=== PATIENT | male | born 1995 | race Caucasian/White ===

== ENCOUNTER 2022-06-05 04:16 | Observation (INO) ==
[2022-06-05] MEDS ORDERED: ONDANSETRON INJ 2 MG/ML 2 ML VIAL IV STA (04:35)
[2022-06-05] MEDS ORDERED: MoRPHine SULFATE 4 MG/ML 1 ML CARP\\VIAL IV PRN (04:35)
[2022-06-05] MEDS ORDERED: SODIUM CHLORIDE 0.9% 1000ML 1,000 ML IV SCH (04:45)
[2022-06-05 05:03] LABS: Basophils # (auto) 0.01 K/uL (0-0.2); Basophils % (auto) 0.3 %; Eosinophils # (auto) 0.02 K/uL (0-0.50); Eosinophils % (auto) 0.6 %; Hematocrit (blood only) 48.4 % (40.1-51.0); Hemoglobin 15.9 g/dl (14.0-18.0); Immature Granulocytes # (auto) 0.01 K/uL (0.00-0.02); Immature Granulocytes % (auto) 0.3 %; Lymphocytes # (auto) 0.85 K/uL (1.2-3.4); Lymphocytes % (auto) 25.1 %; Mean Corpuscular Hemoglobin 24.5 pg (25.0-34.0); Mean Corpuscular Hgb Conc 32.9 g/dL (32.0-36.0); Mean Corpuscular Volume 74.7 fL (80.0-100.0); Mean Platelet Volume 9.8 fL (9.4-12.4); Monocytes # (auto) 0.42 K/uL (0.24-0.82); Monocytes % (auto) 12.4 %; Neutrophils # (auto) 2.07 K/uL (1.4-6.5); Neutrophils % (auto) 61.3 %; Platelet Count 180 K/uL (130-400); RDW Coefficient of Variation 13.9 % (11.5-14.5); RDW Standard Deviation 35.8 fL (36.4-46.3); Red Blood Count 6.48 M/uL (4.63-6.08); White Blood Count 3.38 K/ul (4.8-10.8)
[2022-06-05 05:44] LABS: Anion Gap 11 (3-11); BUN Creatinine Ratio 12.8 (10-20); Blood Urea Nitrogen 11 mg/dl (6-23); Calcium 9.8 mg/dl (8.5-10.1); Carbon Dioxide 27 mmol/L (21-32); Chloride 102 mmol/L (98-107); Est GFR (African American) 139.7 ml/min; Est GFR (Non-African American) 120.5 ml/min; Glucose 104 mg/dl (70-99(Fasting)); Potassium 3.7 mmol/L (3.5-5.1); Sodium 140 mmol/L (136-145)
[2022-06-05 05:56] LABS: Alanine Aminotransferase 600 U/L (7-52); Albumin Globulin Ratio 1.3 (0.9-2); Albumin Level 4.8 gm/dl (3.4-5.0); Alkaline Phosphatase 290 U/L (34-104); Aspartate Aminotransferase 511 U/L (13-39); Bilirubin,Total 1.4 mg/dl (0.2-1.0); Globulin 3.6 gm/dl (2.5-4.0); Lipase 30 U/L (11-82); Magnesium 2.2 mg/dl (1.7-2.4); Total Protein 8.4 gm/dl (6.0-8.3)
--- NOTE | 2022-06-05 07:04 | Emergency Department Note ---
History of Present Illness General Chief complaint: Abdominal Pain Stated complaint: ABDOMINAL PAIN Time Seen by Provider: 06/05/22 04:27 History of Present Illness Maximum Pain Intensity: 0 This is a 27-year-old male presenting to the emergency department for evaluation of epigastric abdominal pain. The patient states that he has had this pain twice in the past 2 days, and tonight was worse than previous. The pain is primarily in the epigastric region and does not radiate. He has not had symptoms like this in the past. No fevers or chills. No nausea or vomiting. He feels like he is eating and drinking as normal. He does not identify aggravating or alleviating factors. He does not have a history of abdominal surgery. Past Med/Surg History Medical History No chronic diseases present Surgical History No significant past surgical history Social History Smoking Status: Never smoker Preferred Language: Hebrew Feels Safe at Home: Yes Review of Systems A total of 10 systems reviewed and were otherwise negative Physical Exam Vital Signs Vital Signs - 24 hr 06/05/22 04:25 06/05/22 05:27 Temperature 36.6 C Temperature Source Oral Pulse Rate 74 Pulse Rate [Finger] 64 Respiratory Rate 18 18 Respiratory Effort / Characteristics Non-Labored Spontaneous Non-Labored Spontaneous Respiratory Depth Normal Normal Blood Pressure 131/96 Blood Pressure [Right Arm] 125/82 Blood Pressure Mean 107 Blood Pressure Mean [Right Arm] 96 Blood Pressure Position Sitting Blood Pressure Position [Right Arm] Sitting Pulse Oximetry 93 97 Oxygen Delivery Method Room Air Room Air Sepsis Recent Fever Within 48 Hours No Sepsis New/Unexplained Change in Mental Status No Sepsis Action Taken by Nursing No Action Required VITALS: Vitals are noted on the nurse's note and reviewed by myself. Vital signs stable. GENERAL: Well-developed, well-nourished, white male, who is in no acute distress and resting comfortably. Patient is cooperative with the examination. HEAD: Normocephalic atraumatic. HEART: Regular rate and rhythm without murmurs gallops or rubs. LUNGS: Clear to auscultation bilaterally without wheezes, rales or rhonchi. No retractions or accessory muscle use. ABDOMEN: Positive normal bowel sounds x 4. Soft with gastric tenderness. No rebound or guarding. No lower abdominal tenderness. No CVA tenderness. MUSCULOSKELETAL: No muscle atrophy, erythema, or edema noted. Full range of motion in all extremities. No tenderness to palpation. Normal gait. Strength 5/5 throughout. NEURO: Patient was alert and oriented to person place and time. CN II through XII grossly intact. Course Administered Medications Morphine Sulfate (Morphine Sulfate 4 Mg/Ml 1 Ml Carp\Vial) 4 mg IV Q30M PRN PRN Reason: Pain Stop: 06/19/22 04:34 Last Admin: 06/05/22 05:14 Dose: 4 mg Documented By: CC Discontinued Medications Sodium Chloride (Nss 1000ml) 1,000 mls @ 999 mls/hr IV .Q1H1M PHIL Stop: 06/05/22 05:45 Last Infusion: 06/05/22 06:38 Dose: 0 mls/hr Documented By: Admin: 06/05/22 05:12 Dose: 999 mls/hr Documented By: CC Ondansetron HCl (Ondansetron Inj 2 Mg/Ml 2 Ml Vial) 4 mg IV NOW STA Stop: 06/05/22 04:36 Last Admin: 06/05/22 05:13 Dose: 4 mg Documented By: CC Medical Decision Making Differential Diagnosis Differential diagnosis: Etiologies such as biliary colic, cholecystitis, hepatitis, pancreatitis, cardiac disease, pancreatitis, gastritis, peptic ulcer disease, appendicitis, cystitis, diverticulitis, mesenteric ischemia, inflammatory bowel disease, ileus, bowel obstruction, testicular/adnexal torsion, aortic pathology, shingles, as well as others were considered Laboratory Data Result diagrams: 06/05/22 04:52 06/05/22 04:52 Lab Results 06/05/22 06/05/22 06/05/22 Range/Units 04:52 04:52 04:52 WBC 3.38 L (4.8-10.8) K/ul RBC 6.48 H (4.63-6.08) M/uL Hgb 15.9 (14.0-18.0) g/dl Hct 48.4 (40.1-51.0) % MCV 74.7 L (80.0-100.0) fL MCH 24.5 L (25.0-34.0) pg MCHC 32.9 (32.0-36.0) g/dL RDW Std Deviation 35.8 L (36.4-46.3) fL RDW Coeff of Lorri 13.9 (11.5-14.5) % Plt Count 180 (130-400) K/uL MPV 9.8 (9.4-12.4) fL Immature Gran % (Auto) 0.3 % Neut % (Auto) 61.3 % Lymph % (Auto) 25.1 % [place] % (Auto) 12.4 % Eos % (Auto) 0.6 % Baso % (Auto) 0.3 % Neut # (Auto) 2.07 (1.4-6.5) K/uL Lymph # (Auto) 0.85 L (1.2-3.4) K/uL [place] # (Auto) 0.42 (0.24-0.82) K/uL Eos # (Auto) 0.02 (0-0.50) K/uL Baso # (Auto) 0.01 (0-0.2) K/uL Immature Gran # (Auto) 0.01 (0.00-0.02) K/uL Sodium 140 (136-145) mmol/L Potassium 3.7 (3.5-5.1) mmol/L Chloride 102 (98-107) mmol/L Carbon Dioxide 27 (21-32) mmol/L Anion Gap 11 (3-11) BUN 11 (6-23) mg/dl Creatinine 0.86 (0.6-1.4) mg/dl Est Cr Clr Drug Dosing Not Reportable Est GFR ( Amer) 139.7 ml/min Est GFR (Non-Af Amer) 120.5 ml/min BUN/Creatinine Ratio 12.8 (10-20) Glucose 104 H (70-99(Fasting)) mg/dl Calcium 9.8 (8.5-10.1) mg/dl Magnesium 2.2 (1.7-2.4) mg/dl Total Bilirubin 1.4 H (0.2-1.0) mg/dl AST 511 H (13-39) U/L ALT 600 H (7-52) U/L Alkaline Phosphatase 290 H (34-104) U/L Total Protein 8.4 H (6.0-8.3) gm/dl Albumin 4.8 (3.4-5.0) gm/dl Globulin 3.6 (2.5-4.0) gm/dl Albumin/Globulin Ratio 1.3 (0.9-2) Lipase 30 (11-82) U/L Monoscreen Negative (Negative) MDM Narrative Physical exam and history were performed. Nursing notes, EMR, and Medication List were personally reviewed. Patient appears to have upper abdominal pain bringing him to the ER. He does not appear toxic on examination but does have reproducible tenderness. IV access was established and labs were obtained. He was hydrated with normal saline and given IV morphine and IV Zofran for comfort. The patient's blood work is as above and was reviewed. He does not have a significantly elevated white blood cell count, gross anemia, bandemia, or significant electrolyte imbalance. Transaminases are markedly elevated. [place] was negative. Lipase is not diagnostic. Because of patient's symptoms CT scan with IV and oral contrast was ordered. The remained in stable condition until the time of shift change. The case was discussed with my colleague, Bernadette Diamond PA-C, at the time of shift change. Please see Ms. Diamond's dictation for further patient course, plan, disposition pending CT scan. The chart was completed utilizing [employer] Speech Voice Recognition Software. Grammatical errors, random word insertions, pronoun errors, and incomplete sentences are an occasional consequence of this system due to software limitations, ambient noise, and hardware issues. Any formal questions or concerns about the content, text, or information contained within the body of this dictation should be directly addressed to the provider for clarification. . Impression & Plan Acute upper abdominal pain Discharge Plan Visit Data Chief Complaint: Abdominal Pain Stated Complaint: ABDOMINAL PAIN ED Provider: Namita Joseph ED Midlevel Provider: Pablo Dallas Discharge Problem: Acute upper abdominal pain Forms Stand Alone Forms: My [facility] Referrals Referrals: PCP,NO [Primary Care Provider] -
[2022-06-05 07:52] LABS: Appearance Urine Clear (Clear); Bilirubin Urine Negative (Negative); Blood Urine Negative (Negative); Color Urine Yellow; Glucose Urine UA Negative (Negative); Ketones Urine Negative (Negative); Leukocyte Esterase Urine Negative (Negative); Nitrite Urine Negative (Negative); Protein Urine Negative (Negative); Specific Gravity Urine 1.009 (1.000-1.030); Urobilinogen Urine Negative (Negative); pH Urine 5.5 (4.5-7.5)
[2022-06-05] MEDS ORDERED: OPTIRAY 350 100ml IV ONE (08:13)
[2022-06-05 08:20] LABS: Amphetamines+Metham, Urine Neg (Neg); Barbiturates, Urine Neg (Neg); Benzodiazepine, Urine Neg (Neg); Cocaine, Urine Neg (Neg); MDMA (Ecstacy), Urine Neg (Neg); Methadone, Urine Neg (Neg); Opiate, Urine Pos (Neg); Phencyclidine, Urine Neg (Neg)
--- NOTE | 2022-06-05 09:28 | Emergency Department Note ---
ED Visit Note This patient was signed out to me by Pablo TREVIZO due to change of shift. The patient has been being evaluated for abdominal pain with worsening epigastric abdominal pain for the past 2 days. The patient states that he had 2 acute attacks of the epigastric abdominal pain after eating mozzarella sticks and then pizza. He did have a fever on 05/31/2022 for a couple hours, but no fever since that time. Laboratory studies revealed elevated LFTs with ALT of 600, AST 511, alk phos 290, and total bili 1.4. Lipase was normal. Decreased white blood cell count at 3.38 with normal hemoglobin of 15.9. Platelets normal at 180. CMP otherwise essentially unremarkable. Urinalysis negative for UTI. Urine drug screen positive for opiates and marijuana (he had been given morphine prior to the urine sample). Monoscreen negative with acute hepatitis panel pending. The patient's pain had resolved after morphine 4 mg IV and Zofran 4 mg IV. He was also given 1 L normal saline solution bolus. CT scan of the abdomen pelvis with IV and oral contrast showed mild enhancement within the nondistended gallbladder wall with trace pericholecystic fluid. There is also subtle enhancement within the common hepatic duct. This is nonspecific but could be related to a developing acute cholecystitis or ascending cholangitis. No bowel wall thickening or obstruction. Normal appendix. Blood cultures were obtained and the patient was started on Zosyn 4.5 g IV. I contacted surgery and spoke with Cooper TREVIZO who recommended the patient be admitted by medicine and GI consulted. I spoke with the on-call hospitalist who agreed to admit the patient for further evaluation and treatment. They will consult GI as needed. Please refer to their dictation for further details. The care of this patient was transferred to the hospitalist in stable condition. .
--- NOTE | 2022-06-05 09:29 | CT Scan Report ---
ABDOMEN AND PELVIS CT WITH IV AND ORAL CONTRAST CT DOSE: 376.33 mGy.cm HISTORY: Right-sided abdominal pain TECHNIQUE: Multiaxial CT images of the abdomen and pelvis were performed following the use of intrave nous and oral contrast. A dose lowering technique was utilized adhering to the principles of ALARA. COMPARISON STUDY: None. FINDINGS: The lung bases are clear. No pneumoperitoneum. No pneumatosis. The spleen is top normal in size. The adrenal glands, pancreas, and right kidney are unremarkable. There is a 7 mm left renal hyp odense lesion which favors a cyst. No hydronephrosis. The bladder is unremarkable. No retroperitoneal lymphadenopathy. Normal caliber abdominal aorta. No hepatic masses. There is mild enhancement within the nondistended gallbladder with trace pericholecystic fluid. There is also subtle enhancement with in the common hepatic duct. Normal caliber common bile duct. No definite gallstones by CT. The main p ortal vein is patent. No pelvic free fluid. No bowel wall thickening or obstruction. Normal appendix. IMPRESSION: 1. Mild enhancement within the nondistended gallbladder wall with trace pericholecystic fluid. There is also subtle enhancement within the common hepatic duct. This is nonspecific but could be related t o a developing acute cholecystitis or ascending cholangitis. Surgical/GI consultation recommended. 2. No bowel wall thickening or obstruction. 3. Normal appendix. ACT 112: Negative or not required by law. Electronically signed by: Steve Schuster M.D. 06/05/2022 9:28 AM
[2022-06-05] MEDS ORDERED: PIPERACILLIN/TAZOBACTAM 4.5 GM/120 ML BAG IV ONE (09:42)
--- NOTE | 2022-06-05 11:23 | History & Physical Report ---
Date of Service June 05, 2022 Assessment & Plan (1) Transaminitis: (2) Abnormal computed tomography of abdomen and pelvis: Plan: This is a 27yo M with PMH of depression and ADD who presents with abdominal pain x 2 days. Pain started two nights ago after eating mozzarella sticks and he describes it as sudden onset in epigastrium with associated nausea and found to have cholelithiasis, transaminitis and concern for ascending cholangitis per imaging. Afebrile, VSS, no leukocytosis. Not septic Tbili 1.4, AST 511, ALT 600, alk phos 290, monospot negative, hepatitis panel pending CT abd/pelvis with mild enhancement within the nondistended gallbladder wall with trace pericholecystic fluid. There is also subtle enhancement within the common hepatic duct. This is nonspecific but could be related to a developing acute cholecystitis or ascending cholangitis GI consulted - recommending MRCP and antibiotic coverage given fever a few days prior. Planning for EUS/ERCP tomorrow afternoon Gen surg consulted - ordered abd ultrasound which shows cholelithiasis and intraductal calculi within liver raising concern for PSC . Tentatively planning for lap roxann tomorrow Maintenance IV fluids, analgesics, empiric Cipro/Flagyl NPO @ midnight (3) Depression: Plan: Continue Zoloft (4) ADD (attention deficit disorder): Plan: No longer taking medications DVT Ppx: SCDs Code status: FULL PCP: Any Dispo: Admitted to med/surg Patient seen in collaboration with Dr. Sorto. Please see addendum. History of Present Illness Chief Complaint: abdominal pain Primary Care Provider: NO PCP This is a 27yo M with PMH of depression and ADD who presents with abdominal pain x 2 days. Pain started two nights ago after eating mozzarella sticks and he describes it as sudden onset in epigastrium with associated nausea. [place] too poorly to shower but was able to lay down and sleep with resolution of pain by morning. Recurred again last night after eating pizza and has progressively worsened overnight despite taking 500mg Tylenol and patient came into ED for further evaluation. Did have a fever of 102 F over the weekend for 12 hours but has not recurred. No chills, headache, lightheadedness, vomiting, dysuria, diarrhea or constipation. Pain has resolved with IV morphine in ED. No history of abdominal surgeries. Take CBD/THC gummies. Denies regular alcohol use. Only home meds include Zoloft and Vitamin D supplement. Allergies Allergy/AdvReac Type Severity Reaction Status Date / Time No Known Allergies Allergy Verified 06/05/22 09:40 Home Medications Medication Instructions Recorded Confirmed Type cholecalciferol (vitamin D3) 50 50 mcg PO DAILY 06/05/22 06/05/22 History mcg (2,000 unit) capsule (Vitamin D3) sertraline 100 mg tablet 150 mg PO DAILY 06/05/22 06/05/22 History Past Med/Surg History Medical History ADD (attention deficit disorder) Depression Surgical History Other dental procedure status Family History (Updated 06/05/22 @ 13:35 by Radha Prasad PA-C) Other Hypertension Social History Smoking Status: Never smoker Hx Alcohol Use: Yes Alcohol Intake Frequency: Monthly or Less Hx Substance Use: No Preferred Language: Pashto Current Living Situation: Parent Feels Safe at Home: Yes Review of Systems Review of Systems: At least ten systems reviewed and negative except as noted in the HPI. Physical Exam Physical Exam: General Appearance: WD/WN, vitals as above, NAD, sitting up in bed, pleasant, conversing easily Head: normocephalic, atraumatic Eyes: normal inspection, PERRL, conjunctivae normal, anicteric sclerae ENT: external ear and nose normal, oropharynx normal Neck: normal visual inspection, trachea midline, no thyromegaly Respiratory: normal respiratory effort, lungs clear to auscultation, no wheeze, rales, rhonchi. No accessory muscle use Cardiovascular: regular rate, rhythm, no murmur, normal peripheral pulses, no BLE edema. Vessels: no JVD Chest: normal inspection of chest Abdomen/GI: normal bowel sounds, soft, mild TTP epigastric region, no hepato splenomegaly Extremities/Musculoskeletal: no cyanosis or clubbing, extremities motor strength 5/5 Neurologic: PERRL, EOMI, accommodation nl, no face palsy, no dysarthria, CN's II-XI intact bilaterally and moves all extremities Psychiatric: A+Ox3, euthymic affect Skin: no rashes, normal color, warm/dry Results & Data Results & [facility] ([facility]) Vital Signs (Past 12 Hours) Vital Signs Temp Pulse Pulse Resp BP BP Pulse Ox 06/05/22 06:58 70 14 117/76 98 06/05/22 05:27 64 18 125/82 97 06/05/22 04:25 36.6 C 74 18 131/96 93 O2 Del Method 06/05/22 06:58 Room Air 06/05/22 05:27 Room Air 06/05/22 04:25 Room Air Laboratory Results Short CBC 06/05/22 Range/Units 04:52 WBC 3.38 L (4.8-10.8) K/ul Hgb 15.9 (14.0-18.0) g/dl Hct 48.4 (40.1-51.0) % Plt Count 180 (130-400) K/uL BMP 06/05/22 04:52 Sodium 140 Potassium 3.7 Chloride 102 Carbon Dioxide 27 BUN 11 Creatinine 0.86 Glucose 104 H Calcium 9.8 Liver Function 06/05/22 Range/Units 04:52 Total Bilirubin 1.4 H (0.2-1.0) mg/dl AST 511 H (13-39) U/L ALT 600 H (7-52) U/L Alkaline Phosphatase 290 H (34-104) U/L Albumin 4.8 (3.4-5.0) gm/dl Urine 06/05/22 Range/Units 07:23 Urine Color Yellow Urine Appearance Clear (Clear) Urine pH 5.5 (4.5-7.5) Ur Specific [place] 1.009 (1.000-1.030) Urine Protein Negative (Negative) Urine Glucose (UA) Negative (Negative) Diagnostic Findings Abdomen/Pelvis CT 06/05/22 05:[address] WITH IV AND ORAL CONTRAST CT DOSE: 376.33 mGy.cm HISTORY: Right-sided abdominal pain TECHNIQUE: Multiaxial CT images of the abdomen and pelvis were performed following the use of intravenous and oral contrast. A dose lowering technique was utilized adhering to the principles of ALARA. COMPARISON STUDY: None. FINDINGS: The lung bases are clear. No pneumoperitoneum. No pneumatosis. The spleen is top normal in size. The adrenal glands, pancreas, and right kidney are unremarkable. There is a 7 mm left renal hypodense lesion which favors a cyst. No hydronephrosis. The bladder is unremarkable. No retroperitoneal lymphadenopathy. Normal caliber abdominal aorta. No hepatic masses. There is mild enhancement within the nondistended gallbladder with trace pericholecystic fluid. There is also subtle enhancement within the common hepatic duct. Normal caliber common bile duct. No definite gallstones by CT. The main portal vein is patent. No pelvic free fluid. No bowel wall thickening or obstruction. Normal appendix. IMPRESSION: 1. Mild enhancement within the nondistended gallbladder wall with trace pericholecystic fluid. There is also subtle enhancement within the common hepatic duct. This is nonspecific but could be related to a developing acute cholecystitis or ascending cholangitis. Surgical/GI consultation recommended. 2. No bowel wall thickening or obstruction. 3. Normal appendix. ACT 112: Negative or not required by law. Electronically signed by: Steve Schuster M.D. 06/05/2022 9:28 AM Code Status & VTE Plan VTE Prophylaxis Plan VTE Prophylaxis will be ordered: Yes Supervising Physician Co-Signing Physician Notes Care coordinated with Radha Prasad PA-C. Agree with able note. Patient seen and examined. Please refer to her notes for full details. Vital signs reviewed. Physical exam: General exam: Alert and oriented. Not in acute distress. CVS: S1 and S2 heard, regular rate and rhythm, no murmurs. RS: Clear to auscultation, no wheezing or crackles. ABD: Soft, bowel sounds present, mild epigastric tenderness present , no distention. COUTURE ALTERATIONS DRESSMAKER: Nonfocal. EXT: No edema, no erythema. Labs: Reviewed. Assessment and plan: 27Y M presents with abdominal pain in epigastric region radiating down the lower rig cage associated with Nausea. Pain first came couple of days ago and subsided after some time but came back again which prompted him to come to ER. Last Thursday he had fever but subsided after 12-16hrs and it was not related to his abdomen pain as per patient. Currently resting comfortably and hemodynamically stable. No chest pain or sob. Afebrile currently. Acute cholecystitis Cholangitis? as per imaging studies Elevated LFt possible PSC as per Ultrasound MRCP: 1. Cholelithiasis with findings suspicious for acute cholecystitis. If warranted a nuclear hepatobiliary scan would be confirmatory. 2. There is mild intrahepatic biliary ductal dilatation. The common bile duct is dilated, and choledocholithiasis is questioned at the ampulla. NPO Iv fluids iv cipro and flagyl GI and Surgery consulted Plan for ercp/eus in am followup labs Other diagnosis and plan of care as per Radha Prasad PA-C. Rey hodgson MD.
--- NOTE | 2022-06-05 12:02 | Gastrointestinal Consultation ---
Date of Consultation June 05, 2022 Assessment & Plan (1) Abnormal computed tomography of abdomen and pelvis: CT w prominence of the CBD and gallstones. US pending. Plan Planning for EUS +/- ERCP today by Dr. Rayo. If not able to get this done today, then would get MRCP. Because hx of fever last sat, there is concern for cholangitis and would cover w antibiotic such as Cipro. Supervising Physician Co-Signing Physician Notes Thomas Stacy is a 27 y/o M with no significant PMH other than mood disorder that presented with abdominal pain that began 2 days ago located in the epigastric region and radiating down the costal margins. He reports both him and his sister had a fever last thursday but no fevers or chills since. No jaundifce/scleral icterus. He denies any hx of abdominal pain or related symptoms. He denies alcohol or drug use (though drug screen was + for THC). On arrival he was HDS without fever with labs notable for wbc 3k, hgb 15.9, AST 511, ALT 600, ALP 290, total bili 1.4. Acute hep panel negative. Abdominal US notable for cholelithiasis without acute cholecystitis, mild intra and extra hepatic biliary duct dilation (no CBD stone seen however found to have intraductal calculi within liver) and possibility of PSC. CT abd/pelvis also reviewed which did show some subtle enhancement within the common hepatic duct. Physical exam: General: AAOx3, laying in bed, no complaints Eyes: sclera anicteric Lungs: CTA bilaterally Cardiac: RRR, no murmurs Abdomen: soft, non-tender, non-distended, no guarding/rigidity, no hepatosplenomegaly Psych: appropriate affect Plan: -will plan for EUS+/- ERCP tomorrow afternoon in the OR. ERCP will also be helpful to assess if patient has PSC which was raised as a possibility on abdominal ultrasound. -NPO at midnight tonight -trend LFTs daily -await results of acute hepatitis panel -empiric coverage for cholangitis given history of fever with something such as cipro or zosyn -further recommendations pending outcome of procedures tomorrow Agnieszka Guajardo, Gastroenterology and Hepatology I personally saw and evaluated the patient on 06/05. I agree with the plan and recommendations as stated above by VINI Pizarro. History of Present Illness Reason for Consultation: Abdominal pain, elevated LFTs Requesting Physician: Radha Prasad PA-C Attending Physician: [facility] History of Present Illness Mr. Thomas Stacy is a 27 yr old male w/o a PCP, w a PMH remarkable only for mood disorder who has been having intermittent, episodic upper abd pain after eating which began 2 days, after eating Pizza and Mozzerella sticks. Because the pain has not subsided, he presented to the ED where transaminases are significantly elevated (ALT>AST) and imaging suggests cholecystitis and possible subtle enhancement of the CBD. [place] spot is (-), acute hepatitis panel is pending, and there is no leukocytosis. Drug tox is positive for marijuana and opioids (but had been given a narcotic analgesic in the ED prior to the draw). He mentions that he had a fever last Thursday (5 days ago) but doesn't believe that it was related to the pain. His sister was sick with a febrile illness at the time and he had been exposed. He is COVID (-). His pain did no start until Thursday. He is seen/examined while resting in bed. He is awake, alert, oriented and hemodynamically stable. Allergies Allergy/AdvReac Type Severity Reaction Status Date / Time No Known Allergies Allergy Verified 06/05/22 09:40 Home Medications Medication Instructions Recorded Confirmed Type cholecalciferol (vitamin D3) 50 50 mcg PO DAILY 06/05/22 06/05/22 History mcg (2,000 unit) capsule (Vitamin D3) sertraline 100 mg tablet 150 mg PO DAILY 06/05/22 06/05/22 History Patient History Medical History ADD (attention deficit disorder) Depression Surgical History Other dental procedure status Family History (Updated 06/05/22 @ 13:35 by Radha Prasad PA-C) Other Hypertension Social History Smoking Status: Never smoker Hx Alcohol Use: Yes Alcohol Intake Frequency: Monthly or Less Hx Substance Use: Yes Prescribed Medications: Marijuana Preferred Language: Ethiopian Feels Safe at Home: Yes Review of Systems Review of Systems: ROS: Gen: Denies weakness, fevers, weight loss Eyes: No eye redness, or pain, no recent vision changes Resp: No SOB, no cough Cardio: No palpitations/irregular beats, no chest pain GI: As per HPI, otherwise (-). : Denies pain on urination Skin: No jaundice, itching or new rashes Physical Exam Constitutional: WD/WN, vitals as above Eyes: PERRL, conjunctivae normal, anicteric sclerae ENMT: external ear and nose normal, oropharynx normal Neck: trachea midline, no thyromegaly Respiratory: normal respiratory effort, lungs clear to auscultation Cardiovascular: RRR, no murmur, no edema Gastrointestinal (Abdomen): Inspection/Auscultation: abdomen normal to inspection; abdomen not distended Percussion/Palpation: + abdomen tender (mild, upper abdomen) and abdomen soft; no hepatosplenomegaly and no splenomegaly Skin: no rashes, warm and dry Neurologic: PERRL, EOMI, accommodation nl, no face palsy, no dysarthria Psychiatric: A+Ox3, euthymic affect Lymphatic: no cervical or axillary lymphadenopathy Results & Data ([facility]) Vital Signs (Past 12 Hours) Vital Signs Temp Pulse Pulse Resp BP BP Pulse Ox 06/05/22 06:58 70 14 117/76 98 06/05/22 05:27 64 18 125/82 97 06/05/22 04:25 36.6 C 74 18 131/96 93 O2 Del Method 06/05/22 06:58 Room Air 06/05/22 05:27 Room Air 06/05/22 04:25 Room Air Laboratory Results T Bili 1.4, AST 511, ALT 600, Alk Phos 290. WBC 3, Hb 15, Hct 4.4, glucose 180, Na 140, K 3.7, Cl 102, Co2 27, BUN 11, Cr .86,glucose 104. Diagnostic Findings CTAP w IV and oral today: 1. Mild enhancement within the nondistended gallbladder wall with trace pericholecystic fluid. There is also subtle enhancement within the common hepatic duct. This is nonspecific but could be related to a developing acute cholecystitis or ascending cholangitis. Surgical/GI consultation recommended. 2. No bowel wall thickening or obstruction. 3. Normal appendix.
--- NOTE | 2022-06-05 12:57 | Ultrasound Report ---
ABDOMINAL ULTRASOUND, RIGHT UPPER QUADRANT HISTORY: R/o gallstones, choledocholithiasis. COMPARISON: CT of the abdomen and pelvis June 05, 2022. FINDINGS: Mild intra and extra hepatic biliary ductal dilatation is noted. The common bile duct measu res 9 mm in caliber. No common bile duct calculi are identified. However, there are 2 echogenic foci with shadowing within the intrahepatic bile ducts which measure up to 1 cm. These could reflect intra ductal calculi. Gallstones within the gallbladder are noted. There is mild gallbladder wall thickenin g. The gallbladder is not distended. No sonographic Portillo sign was elicited. The pancreas is obscure d by overlying bowel gas. There is no right hydronephrosis. IMPRESSION: 1. Cholelithiasis with mild gallbladder wall thickening. However, no sonographic Portillo sign. These f indings do not strongly suggest acute cholecystitis although a hepatobiliary scan could be obtained a s indicated. 2. Mild biliary ductal dilatation. No common bile duct calculi identified although distal common bile duct obscured. Two suspected intraductal calculi within the liver. These are nonspecific but raise t he possibility of cholangitis, such as primary sclerosing cholangitis. GI consultation is recommended . ACT 112: Negative or not required by law. Electronically signed by: Liborio Cha M.D. 06/05/2022 12:56 PM
--- NOTE | 2022-06-05 13:23 | Surgery Consultation ---
Date of Consultation June 05, 2022 Assessment & Plan (1) Cholelithiasis: CT images and ultrasound images and results personally viewed by me He does have gallstones without any clinical or sonographic signs of acute cholecystitis On ultrasound he also has intraductal calculi within the liver raising a concern for PSC We will await gastroenterology evaluation for possible EUS/ERCP I will tentatively place him on the schedule tomorrow for laparoscopic cholecystectomy History of Present Illness Reason for Consultation: Cholelithiasis History of Present Illness Is a 27-year-old male presents to the ER with 2 days of epigastric pain. . He states that he ate some mozzarella sticks and had epigastric pain with radiation down his costal margins. This then went away however he then had some pizza yesterday evening and the pain persisted. He denies any jaundice, scleral icterus, acholic stools, tea colored urine. He states he did have a fever a couple days ago. He is also had some associated nausea without emesis.He denies any previous abdominal surgeries. Allergies Allergy/AdvReac Type Severity Reaction Status Date / Time No Known Allergies Allergy Verified 06/05/22 09:40 Home Medications Medication Instructions Recorded Confirmed Type cholecalciferol (vitamin D3) 50 50 mcg PO DAILY 06/05/22 06/05/22 History mcg (2,000 unit) capsule (Vitamin D3) sertraline 100 mg tablet 150 mg PO DAILY 06/05/22 06/05/22 History Patient History Medical History ADD (attention deficit disorder) Depression Surgical History Other dental procedure status Social History Smoking Status: Never smoker Hx Alcohol Use: Yes Alcohol Intake Frequency: Monthly or Less Hx Substance Use: Yes Prescribed Medications: Marijuana Preferred Language: [place] Islander Feels Safe at Home: Yes Review of Systems Constitutional: no fever and no chills Eyes: no worsening vision Ear, Nose, Mouth, Throat: no ear pain and no hearing loss Respiratory: no cough and no dyspnea Cardiovascular: no chest pain and no dyspnea on exertion Gastrointestinal: + abdominal pain and + nausea; no vomiting, no change in stools, no constipation, no diarrhea/loose stools, no blood in stools and no melena Genitourinary: no dysuria Musculoskeletal: no back pain and no neck pain Integumentary: no acne, no rash, no skin ulcer and no sores Neurologic: no headache(s) Psychiatric: no behavioral changes and no depression Hematologic / Lymphatic: no easy bleeding and no easy bruising Physical Exam Constitutional: WD/WN, vitals as above Eyes: PERRL, conjunctivae normal, anicteric sclerae ENMT: external ear and nose normal, oropharynx normal Neck: trachea midline, no thyromegaly Respiratory: normal respiratory effort, lungs clear to auscultation Cardiovascular: RRR, no murmur, no edema Gastrointestinal (Abdomen): Inspection/Auscultation: abdomen normal to inspection; abdomen not distended Percussion/Palpation: abdomen soft; abdomen nontender, no guarding and no hernia Musculoskeletal: no cyanosis or clubbing, extremities motor strength 5/5 Skin: no rashes, warm and dry Neurologic: PERRL, EOMI, accommodation nl, no face palsy, no dysarthria Psychiatric: A+Ox3, euthymic affect Results & Data ([facility]) Vital Signs (Past 12 Hours) Vital Signs Temp Pulse Pulse Resp BP BP Pulse Ox 06/05/22 06:58 70 14 117/76 98 06/05/22 05:27 64 18 125/82 97 06/05/22 04:25 36.6 C 74 18 131/96 93 O2 Del Method 06/05/22 06:58 Room Air 06/05/22 05:27 Room Air 06/05/22 04:25 Room Air Diagnostic Findings ABDOMINAL ULTRASOUND, RIGHT UPPER QUADRANT HISTORY: R/o gallstones, choledocholithiasis. COMPARISON: CT of the abdomen and pelvis June 05, 2022. FINDINGS: Mild intra and extra hepatic biliary ductal dilatation is noted. The common bile duct measures 9 mm in caliber. No common bile duct calculi are identified. However, there are 2 echogenic foci with shadowing within the intrahepatic bile ducts which measure up to 1 cm. These could reflect intraductal calculi. Gallstones within the gallbladder are noted. There is mild gallbladder wall thickening. The gallbladder is not distended. No sonographic Portillo sign was elicited. The pancreas is obscured by overlying bowel gas. There is no right hydronephrosis. IMPRESSION: 1. Cholelithiasis with mild gallbladder wall thickening. However, no sonographic Portillo sign. These findings do not strongly suggest acute cholecystitis although a hepatobiliary scan could be obtained as indicated. 2. Mild biliary ductal dilatation. No common bile duct calculi identified although distal common bile duct obscured. Two suspected intraductal calculi within the liver. These are nonspecific but raise the possibility of cholangitis, such as primary sclerosing cholangitis. GI consultation is recommended. PG Care Time/CCT Total # of Minutes Spent Total Time Spent with Patient: Total time spent is greater than 50% in coordination of care (as documented) at patient's floor/unit and/or counseling patient: Coding Level of Care Code 01214 Office/OBS Consult Lvl 5 Diagnoses Cholelithiasis K80.20
[2022-06-05] MEDS ORDERED: HYDROmorphone INJ 0.5 MG/0.5 ML SYR IV PRN (13:46)
[2022-06-05] MEDS: SODIUM CHLORIDE 0.9% 1000ML 1,000 ML IV SCH (15:08)
[2022-06-05] MEDS ORDERED: FLUARIX QUADRIVALENT 0.5 ML SYR IM ONE (15:19)
[2022-06-05] MEDS: CIPROFLOXACIN / D5W 400 MG/200 ML BAG IV SCH (15:21)
[2022-06-05] MEDS: metroNIDAZOLE 500 MG/100 ML BAG IV SCH (18:35)
--- NOTE | 2022-06-05 19:43 | Magnetic Resonance Report ---
MRCP CLINICAL HISTORY: Right upper quadrant abdominal pain. COMPARISON STUDY: Abdominal CT dated 06/05/2022. Abdominal ultrasound dated 06/05/2022. TECHNIQUE: Abdominal MRCP is performed utilizing various T2 weighted sequences in the axial and coron al planes. IV contrast was not administered for this examination. 3-D reformats are created and asses sed. The examination is degraded by motion artifact. FINDINGS: Gallstones are noted. There is mild gallbladder wall thickening and edema. The gallbladder is not sig nificantly distended. There is minimal intrahepatic biliary ductal dilatation. The common bile duct i s dilated, measuring up to 9 mm diameter. Question a filling defect at the ampulla. Choledocholithias is is not excluded. The pancreatic duct is normal in caliber. The unenhanced liver is normal as visualized. The spleen is mildly enlarged, measuring 13.3 cm in charo gth. The unenhanced pancreas, adrenal glands, and kidneys are grossly normal. The abdominal aorta is normal in caliber. No bowel obstruction is seen. There is no abdominal ascites. Trace right pleural e ffusion is noted. The bony structures are grossly unremarkable. IMPRESSION: 1. Cholelithiasis with findings suspicious for acute cholecystitis. If warranted a nuclear hepatobili clare scan would be confirmatory. 2. There is mild intrahepatic biliary ductal dilatation. The common bile duct is dilated, and choledo cholithiasis is questioned at the ampulla. Dictated: 06/05/2022 6:52 PM Transcribed: 06/05/2022 7:34 PM Lora [id number] [email or web address] Electronically signed by: Jered Wu M.D. 06/05/2022 7:42 PM
[2022-06-06] MEDS: SODIUM CHLORIDE 0.9% 1000ML 1,000 ML IV SCH ×2 (02:19→11:38)
[2022-06-06] MEDS: metroNIDAZOLE 500 MG/100 ML BAG IV SCH ×3 (02:20→18:51)
[2022-06-06] MEDS: CIPROFLOXACIN / D5W 400 MG/200 ML BAG IV SCH ×2 (03:28→16:36)
[2022-06-06 08:48] LABS: Hematocrit (blood only) 40.6 % (40.1-51.0); Hemoglobin 13.1 g/dl (14.0-18.0); Mean Corpuscular Hemoglobin 24.4 pg (25.0-34.0); Mean Corpuscular Hgb Conc 32.3 g/dL (32.0-36.0); Mean Corpuscular Volume 75.7 fL (80.0-100.0); Platelet Count 132 K/uL (130-400); RDW Coefficient of Variation 13.6 % (11.5-14.5); RDW Standard Deviation 37.2 fL (36.4-46.3); Red Blood Count 5.36 M/uL (4.63-6.08)
[2022-06-06 09:19] LABS: Albumin Globulin Ratio 1.4 (0.9-2); Albumin Level 3.6 gm/dl (3.4-5.0); BUN Creatinine Ratio 8.1 (10-20); Bilirubin,Total 0.7 mg/dl (0.2-1.0); Calcium 8.6 mg/dl (8.5-10.1); Est GFR (African American) 139.7 ml/min; Est GFR (Non-African American) 120.5 ml/min; Globulin 2.6 gm/dl (2.5-4.0); Potassium 3.9 mmol/L (3.5-5.1); Total Protein 6.2 gm/dl (6.0-8.3)
--- NOTE | 2022-06-06 10:16 | Surgery Progress Note ---
Date of Service June 06, 2022 Assessment & Plan (1) Cholelithiasis: Plan: Patient is overall stable and his abdominal pain is improved Upon reviewing his ultrasound results, there is a concern for the possibility of PSC We will await the EUS/ERCP results today He does not have any signs of acute cholecystitis Plan will be to have him follow-up in the office as an outpatient in the short- term to discuss possible elective cholecystectomy at that time Surgery will follow up on ERCP results and while the patient is in the hospital (2) Transaminitis: Admission and Anticipated Discharge Date Admission Date: June 05, 2022 Subjective Patient seen and examined. Denies any abdominal pain at this point. States he did have 1 minor episode of pain yesterday in the evening. Denies any nausea or vomiting. Afebrile. Review of Systems Constitutional: no fever and no chills Physical Exam Constitutional: WD/WN, vitals as above Gastrointestinal (Abdomen): Inspection/Auscultation: abdomen normal to inspection; abdomen not distended Percussion/Palpation: abdomen soft; abdomen nontender, no guarding and no hernia Negative Portillo's Results & Data ([facility]) Vital Signs (Past 12 Hours) Vital Signs Temp Pulse Resp BP Pulse Ox O2 Del Method 06/06/22 07:54 36.5 C 63 17 110/73 99 Room Air 06/05/22 23:05 36.6 C 66 15 111/65 100 Room Air PG Care Time/CCT Total # of Minutes Spent Total Time Spent with Patient: Total time spent is greater than 50% in coordination of care (as documented) at patient's floor/unit and/or counseling patient: Coding Level of Care Code 84806 Subseq Hosp Care Lvl 1 Diagnoses Cholelithiasis K80.20 Transaminitis R74.01
--- NOTE | 2022-06-06 10:44 | Gastroenterology Progress Note ---
Date of Service June 06, 2022 Assessment & Plan (1) Abnormal computed tomography of abdomen and pelvis: Plan: Imaging w prominence of the CBD, question of choledocholithiasis and cholecystitis. US w bile stones - questioning PSC. Plan Planning for EGD/EUS/ERCP today by Dr. Rayo. Would cover for cholangitis w Cipro (because of febrile illness last weekend). Further recommendations to follow procedures. Admission and Anticipated Discharge Date Admission Date: June 05, 2022 Supervising Physician Co-Signing Physician Notes I saw and evaluated the patient, MRI with possible stone material in the distal CBD, we will proceed with EGD / EUS and probable ercp. we have discussed the risks to include bledding, infection, perforation, pancreatitis, failed cannulation and need for f/u studies. Subjective 27, M, admitted 06/05 for 2 days of epigastric pain. Elevated LFTs (improved today compared to yesterday). Monospot (-) and Acute hepatitis panel neg thus far but mostly pending. Imaging w suggestion of choledocholithiasis and acute cholecystitis. Seen by surgery who plans cholecystectomy. Mitesh for EUS/EGD/ERCP this afternoon by Dr. Rayo. Review of Systems Review of Systems: ROS: Gen: Denies weakness, fevers, weight loss Eyes: No eye redness, or pain, no recent vision changes Resp: Very mild chest discomfort, "like a little mucous there, since last Sat" +mild occasional cough. No SOB Cardio: No palpitations/irregular beats, no chest pain GI: As per HPI otherwise (-) : Denies pain on urination Skin: No jaundice, itching or new rashes A total of 12 systems reviewed, all others (-) Physical Exam Constitutional: WD/WN, vitals as above Eyes: PERRL, conjunctivae normal, anicteric sclerae ENMT: external ear and nose normal, oropharynx normal Neck: trachea midline, no thyromegaly Respiratory: normal respiratory effort, lungs clear to auscultation Cardiovascular: RRR, no murmur, no edema Gastrointestinal (Abdomen): Inspection/Auscultation: abdomen normal to inspection; abdomen not distended Percussion/Palpation: + abdomen tender (mild, upper abdomen) and abdomen soft; no hepatosplenomegaly and no splenomegaly Skin: no rashes, warm and dry Neurologic: PERRL, EOMI, accommodation nl, no face palsy, no dysarthria Psychiatric: A+Ox3, euthymic affect Lymphatic: no cervical or axillary lymphadenopathy Results & Data ([facility]) Vital Signs (Past 12 Hours) Vital Signs Temp Pulse Resp BP Pulse Ox O2 Del Method 06/06/22 07:54 36.5 C 63 17 110/73 99 Room Air 06/05/22 23:05 36.6 C 66 15 111/65 100 Room Air Laboratory Results T Bili 0.7, AST 24, ALT 557, Alk Phos 232 WBC 3.3, Hb 15.9, Hct 48.9, plts 180, Na 140, K 3.7, Cl 102, CO2 27, BUN 11, Cr 0.86, glucose 104. Diagnostic Findings MRCP 06/05/22: 1. Cholelithiasis with findings suspicious for acute cholecystitis. If warranted a nuclear hepatobiliary scan would be confirmatory. 2. There is mild intrahepatic biliary ductal dilatation. The common bile duct is dilated, and choledocholithiasis is questioned at the ampulla. RUQ US 06/05/22: 1. Cholelithiasis with mild gallbladder wall thickening. However, no sonographic Portillo sign. These findings do not strongly suggest acute cholecystitis although a hepatobiliary scan could be obtained as indicated. 2. Mild biliary ductal dilatation. No common bile duct calculi identified although distal common bile duct obscured. Two suspected intraductal calculi within the liver. These are nonspecific but raise the possibility of cholangitis, such as primary sclerosing cholangitis. GI consultation is recommended. CTAP 06/05/22: 1. Mild enhancement within the nondistended gallbladder wall with trace pericholecystic fluid. There is also subtle enhancement within the common hepatic duct. This is nonspecific but could be related to a developing acute cholecystitis or ascending cholangitis. Surgical/GI consultation recommended. 2. No bowel wall thickening or obstruction. 3. Normal appendix.
[2022-06-06 11:07] LABS: HBSAG NON-REACTIVE (NON-REACTIVE); Hepatitis A Antibody IgM NON-REACTIVE (NON-REACTIVE); Hepatitis B Core Antibody IgM NON-REACTIVE (NON-REACTIVE)
--- NOTE | 2022-06-06 11:08 | Electrocardiogram Report ---
Test Reason : Blood Pressure : / mmHG Vent. Rate : 060 BPM Atrial Rate : 060 BPM P-R Int : 106 ms QRS Dur : 088 ms QT Int : 442 ms P-R-T Axes : 027 033 022 degrees QTc Int : 442 ms Sinus rhythm Otherwise normal ECG No previous ECGs available Confirmed by Gildardo Neri ([id number]) on 06/06/2022 11:08:09 AM Referred By: REFERRED SELF Confirmed By:Jared Neri
--- NOTE | 2022-06-06 11:11 | Electrocardiogram Report ---
Test Reason : Blood Pressure : / mmHG Vent. Rate : 060 BPM Atrial Rate : 060 BPM P-R Int : 110 ms QRS Dur : 088 ms QT Int : 436 ms P-R-T Axes : 043 045 035 degrees QTc Int : 436 ms Sinus rhythm Otherwise normal ECG No previous ECGs available Confirmed by Gildardo Neri ([id number]) on 06/06/2022 11:11:12 AM Referred By: REFERRED SELF Confirmed By:Jared Neri
--- NOTE | 2022-06-06 12:11 | Hospitalist Progress Note ---
Date of Service June 06, 2022 Assessment & Plan (1) Transaminitis: (2) Abnormal computed tomography of abdomen and pelvis: Plan: This is a 27yo M with PMH of depression and ADD who presents with abdominal pain x 2 days. Pain started two nights ago after eating mozzarella sticks and he describes it as sudden onset in epigastrium with associated nausea and found to have cholelithiasis, transaminitis and concern for ascending cholangitis per imaging. Afebrile, VSS, no leukocytosis. Not septic Tbili 1.4, AST 511, ALT 600, alk phos 290, monospot negative, hepatitis panel pending CT abd/pelvis with mild enhancement within the nondistended gallbladder wall with trace pericholecystic fluid. There is also subtle enhancement within the common hepatic duct. This is nonspecific but could be related to a developing acute cholecystitis or ascending cholangitis GI consulted - MRCP with cholelithiasis with findings suspicious for acute cholecystitis. NPO for EUS/ERCP this afternoon Gen surg consulted - abd ultrasound with cholelithiasis and intraductal calculi within liver raising concern for PSC . Lap roxann cancelled for today due to patient asymptomatic for acute cholecystitis. Will plan for clinic f/u for possible elective cholecystectomy Maintenance IV fluids, analgesics, empiric Cipro/Flagyl Remains NPO for now (3) Depression: Plan: Continue Zoloft once diet advanced (4) ADD (attention deficit disorder): Plan: No longer taking medications DVT Ppx: SCDs Code status: FULL PCP: Any Dispo: Admitted to med/surg Admission and Anticipated Discharge Date Admission Date: June 05, 2022 Supervising Physician Co-Signing Physician Notes delayed entry date of service noted above Attending Addendum: care coordinated with JUAN Prasad please refer to her notes for full details, I agree with her notes patient seen and examined, records reviewed by myself as well on exam, patient seen resting in bed, drowsy but not in distress states he feels fine overall, mild discomfort RUQ no other symptoms diagnoses and plan of care as per JUAN Prasad's notes Junior Stevenson MD Subjective Seen and examined on 318. Resting comfortably watching a movie. Denies any abdominal pain except for an intermittent "rumbling" pain in right upper abdomen. No nausea. Denies any fever, chills, lightheadedness, headache, chest pain, shortness of breath, vomiting, dysuriaor constipation. Had a loose bowel movement last evening. Review of Systems Review of Systems: At least ten systems reviewed and negative except as noted in the HPI. Physical Exam Physical Exam: Gen: WD/WN, NAD, sitting in bedside chair, A&Ox3 HEENT: Normocephalic, atraumatic, conjunctivae moist, sclerae anicteric, mucous membranes moist Lung: Clear to Auscultation bilaterally, no wheezes/rales/rhonchi Heart: Regular rate, regular rhythm, no murmurs, rubs, or gallops Abdomen: Soft, mild TTP upper abdomen, ND +BS x 4 Extremities: no edema Skin: Warm, no rash Results & Data Results & Data ([facility]) Vital Signs (Past 12 Hours) Vital Signs Temp Pulse Resp BP Pulse Ox O2 Del Method 06/06/22 07:54 36.5 C 63 17 110/73 99 Room Air Laboratory Results Short CBC 06/06/22 Range/Units 08:13 WBC 2.10 L (4.8-10.8) K/ul Hgb 13.1 L (14.0-18.0) g/dl Hct 40.6 (40.1-51.0) % Plt Count 132 (130-400) K/uL BMP 06/06/22 08:13 Sodium 140 Potassium 3.9 Chloride 106 Carbon Dioxide 30 BUN 7 Creatinine 0.86 Glucose 82 Calcium 8.6 Liver Function 06/06/22 Range/Units 08:13 Total Bilirubin 0.7 D (0.2-1.0) mg/dl AST 249 H (13-39) U/L ALT 557 H (7-52) U/L Alkaline Phosphatase 232 H (34-104) U/L Albumin 3.6 (3.4-5.0) gm/dl Diagnostic Findings Abdomen/Pelvis CT 06/05/22 05:[address] WITH IV AND ORAL CONTRAST CT DOSE: 376.33 mGy.cm HISTORY: Right-sided abdominal pain TECHNIQUE: Multiaxial CT images of the abdomen and pelvis were performed following the use of intravenous and oral contrast. A dose lowering technique was utilized adhering to the principles of ALARA. COMPARISON STUDY: None. FINDINGS: The lung bases are clear. No pneumoperitoneum. No pneumatosis. The spleen is top normal in size. The adrenal glands, pancreas, and right kidney are unremarkable. There is a 7 mm left renal hypodense lesion which favors a cyst. No hydronephrosis. The bladder is unremarkable. No retroperitoneal lymphadenopathy. Normal caliber abdominal aorta. No hepatic masses. There is mild enhancement within the nondistended gallbladder with trace pericholecystic fluid. There is also subtle enhancement within the common hepatic duct. Normal caliber common bile duct. No definite gallstones by CT. The main portal vein is patent. No pelvic free fluid. No bowel wall thickening or obstruction. Normal appendix. IMPRESSION: 1. Mild enhancement within the nondistended gallbladder wall with trace pericholecystic fluid. There is also subtle enhancement within the common hepatic duct. This is nonspecific but could be related to a developing acute cholecystitis or ascending cholangitis. Surgical/GI consultation recommended. 2. No bowel wall thickening or obstruction. 3. Normal appendix. ACT 112: Negative or not required by law. Electronically signed by: Steve Schuster M.D. 06/05/2022 9:28 AM Abdomen Ultrasound 06/05/22 11:23 ABDOMINAL ULTRASOUND, RIGHT UPPER QUADRANT HISTORY: R/o gallstones, choledocholithiasis. COMPARISON: CT of the abdomen and pelvis June 05, 2022. FINDINGS: Mild intra and extra hepatic biliary ductal dilatation is noted. The common bile duct measures 9 mm in caliber. No common bile duct calculi are identified. However, there are 2 echogenic foci with shadowing within the intrahepatic bile ducts which measure up to 1 cm. These could reflect intraductal calculi. Gallstones within the gallbladder are noted. There is mild gallbladder wall thickening. The gallbladder is not distended. No sonographic Portillo sign was elicited. The pancreas is obscured by overlying bowel gas. There is no right hydronephrosis. IMPRESSION: 1. Cholelithiasis with mild gallbladder wall thickening. However, no sonographic Portillo sign. These findings do not strongly suggest acute cholecystitis although a hepatobiliary scan could be obtained as indicated. 2. Mild biliary ductal dilatation. No common bile duct calculi identified although distal common bile duct obscured. Two suspected intraductal calculi within the liver. These are nonspecific but raise the possibility of cholangitis, such as primary sclerosing cholangitis. GI consultation is recommended. ACT 112: Negative or not required by law. Electronically signed by: Liborio Cha M.D. 06/05/2022 12:56 PM Cholangiopancreatography MRI 06/05/22 13:26 MRCP CLINICAL HISTORY: Right upper quadrant abdominal pain. COMPARISON STUDY: Abdominal CT dated 06/05/2022. Abdominal ultrasound dated 06/05/2022. TECHNIQUE: Abdominal MRCP is performed utilizing various T2 weighted sequences in the axial and coronal planes. IV contrast was not administered for this exam ination. 3-D reformats are created and assessed. The examination is degraded by motion artifact. FINDINGS: Gallstones are noted. There is mild gallbladder wall thickening and edema. The gallbladder is not significantly distended. There is minimal intrahepatic biliary ductal dilatation. The common bile duct is dilated, measuring up to 9 mm diameter. Question a filling defect at the ampulla. Choledocholithiasis is not excluded. The pancreatic duct is normal in caliber. The unenhanced liver is normal as visualized. The spleen is mildly enlarged, measuring 13.3 cm in length. The unenhanced pancreas, adrenal glands, and kidneys are grossly normal. The abdominal aorta is normal in caliber. No bowel obstruction is seen. There is no abdominal ascites. Trace right pleural effusion is noted. The bony structures are grossly unremarkable. IMPRESSION: 1. Cholelithiasis with findings suspicious for acute cholecystitis. If warranted a nuclear hepatobiliary scan would be confirmatory. 2. There is mild intrahepatic biliary ductal dilatation. The common bile duct is dilated, and choledocholithiasis is questioned at the ampulla. Dictated: 06/05/2022 6:52 PM Transcribed: 06/05/2022 7:34 PM Lora [id number] [email or web address] Electronically signed by: Jered Wu M.D. 06/05/2022 7:42 PM
[2022-06-06] MEDS: SERTRALINE HCL 50 MG TABLET PO SCH (12:24)
[2022-06-06] MEDS ORDERED: PROPOFOL IV EMULSION 10 MG/ML 20 ML VIAL IV ONE (13:35)
[2022-06-06] MEDS ORDERED: fentaNYL citrate 100 MCG/2 ML VIAL ONE (13:35)
[2022-06-06] MEDS ORDERED: ROCURONIUM BROMIDE 10 MG/ML 5 ML VIAL IV ONE (13:35)
[2022-06-06] MEDS ORDERED: SUCCINYLCHOLINE CHLORIDE 20 MG/ML 10 ML VIAL IV ONE (13:35)
[2022-06-06] MEDS ORDERED: LIDOCAINE 2% MPF LOCAL 5 ML VIAL INFIL ONE (13:35)
[2022-06-06] MEDS ORDERED: MIDAZOLAM HCL 1 MG/ML 2ML VIAL ONE (13:35)
[2022-06-06] MEDS ORDERED: ONDANSETRON INJ 2 MG/ML 2 ML VIAL ONE ×2 (13:35→15:30)
[2022-06-06] MEDS ORDERED: INDOMETHACIN 50 MG SUPP PR ONE (14:08)
--- NOTE | 2022-06-06 14:19 | History & Physical Bridge Note ---
Date of Service June 06, 2022 History & Physical Bridge Note I have examined the patient, reviewed the History & Physical and in the interval since the performance of the History & Physical I have noted the following changes of clinical significance: no changes noted The patient presented with RUQ pain, elevated liver tests and suspicious imaging suggestive of choledocholithiasis. We are planning for EGD, EUS and a probable ERCP. Risks discussed to include bleeding, infection, perforation, pain, pancreatitis, and failed biliary cannulatiion. MRCP Gallstones are noted. There is mild gallbladder wall thickening and edema. The gallbladder is not significantly distended. There is minimal intrahepatic biliary ductal dilatation. The common bile duct is dilated, measuring up to 9 mm diameter. Question a filling defect at the ampulla. Choledocholithiasis is not excluded. The pancreatic duct is normal in caliber. The unenhanced liver is normal as visualized. The spleen is mildly enlarged, measuring 13.3 cm in length. The unenhanced pancreas, adrenal glands, and kidneys are grossly normal. The abdominal aorta is normal in caliber. No bowel obstruction is seen. There is no abdominal ascites. Trace right pleural effusion is noted. The bony structures are grossly unremarkable. IMPRESSION: 1. Cholelithiasis with findings suspicious for acute cholecystitis. If warranted a nuclear hepatobiliary scan would be confirmatory. 2. There is mild intrahepatic biliary ductal dilatation. The common bile duct is dilated, and choledocholithiasis is questioned at the ampulla. CT WITH IV AND ORAL CONTRAST CT DOSE: 376.33 mGy.cm HISTORY: Right-sided abdominal pain TECHNIQUE: Multiaxial CT images of the abdomen and pelvis were performed following the use of intravenous and oral contrast. A dose lowering technique was utilized adhering to the principles of ALARA. COMPARISON STUDY: None. FINDINGS: The lung bases are clear. No pneumoperitoneum. No pneumatosis. The spleen is top normal in size. The adrenal glands, pancreas, and right kidney are unremarkable. There is a 7 mm left renal hypodense lesion which favors a cyst. No hydronephrosis. The bladder is unremarkable. No retroperitoneal lymphadenopathy. Normal caliber abdominal aorta. No hepatic masses. There is mild enhancement within the nondistended gallbladder with trace pericholecystic fluid. There is also subtle enhancement within the common hepatic duct. Normal caliber common bile duct. No definite gallstones by CT. The main portal vein is patent. No pelvic free fluid. No bowel wall thickening or obstruction. Normal appendix. IMPRESSION: 1. Mild enhancement within the nondistended gallbladder wall with trace pericholecystic fluid. There is also subtle enhancement within the common hepatic duct. This is nonspecific but could be related to a developing acute cholecystitis or ascending cholangitis. Surgical/GI consultation recommended. 2. No bowel wall thickening or obstruction. 3. Normal appendi
[2022-06-06] MEDS ORDERED: ePHEDrine sulfate 50 MG/ML AMP IV PRN (14:27)
[2022-06-06] MEDS ORDERED: ATROPINE SULFATE 0.1 MG/ML 10ML SYR IV PRN (14:27)
[2022-06-06] MEDS ORDERED: fentaNYL citrate 100 MCG/2 ML VIAL IV PRN (14:27)
[2022-06-06] MEDS ORDERED: PROMETHAZINE HCL 6.25 MG in SODIUM CHLORIDE 0.9% 50 ML IV PRN (14:27)
[2022-06-06] MEDS ORDERED: ONDANSETRON INJ 2 MG/ML 2 ML VIAL IV PRN (14:27)
--- NOTE | 2022-06-06 14:27 | Anesthesiology Consultation ---
Date of Service June 06, 2022 Assessment & Plan Chart Review Chart Review: Acceptable Risk for Surgery and Patient NOT seen in Pre Admission Testing Consults Requested none ASA ASA2 Proposed Anesthesia Anesthesia Type: General Risk / Benefits Reviewed With: PT / POA / Parent / Guardian, Accepts Plan and Informed Consent Obtained History Surgery Operation Date: 06/06/22 08:50 Proposed Procedures p Laparoscopic Cholecystectomy - Cory Walker DO Operation Date: 06/06/22 14:00 Proposed Procedures p Endoscopic Retrograde Cholangiopancreato - Zan Rayo DO s Endoscopic Ultrasonography Upper - Zan Rayo, s Esophagogastroduodenoscopy - Zan Rayo DO Height/Weight Height: 5 ft 7 in Weight: 79.9 kg Allergies Allergy/AdvReac Type Severity Reaction Status Date / Time Latex, Natural Rubber AdvReac Swelling & Verified 06/06/22 13:25 pain in hands after wearing latex gloves 6+ hours Medications Home Medications Medication Instructions Recorded Confirmed Last Taken cholecalciferol (vitamin D3) 50 50 mcg PO DAILY 06/05/22 06/05/22 Unknown mcg (2,000 unit) capsule (Vitamin D3) sertraline 100 mg tablet 150 mg PO DAILY 06/05/22 06/05/22 Unknown Active Medications Generic Name Dose Route Start Last Admin Trade Name Freq PRN Reason Stop Dose Admin Ciprofloxacin 400 mg in 200 mls @ 100 mls/hr 06/05/22 15:00 06/06/22 05:34 Cipro / D5w IV 06/15/22 13:29 Infused Q12H PHIL Infusion Protocol Metronidazole 500 mg in 100 mls @ 100 mls/hr 06/05/22 18:00 06/06/22 12:17 Flagyl IV 06/15/22 13:44 Infused Q8H PHIL Infusion Sodium Chloride 1,000 mls @ 100 mls/hr 06/05/22 14:24 06/06/22 13:09 Nss 1000ml IV 06/06/22 21:29 0 mls/hr .Q10H PHIL Infusion Sertraline HCl 150 mg 06/06/22 09:00 06/06/22 12:24 Sertraline Hcl 50 Mg Tablet PO 07/06/22 08:59 Not Given DAILY PHIL NPO Date Last Intake of Fluids: 06/05/22 Time Last Intake of Fluids: 19:00 Date Last Intake of Solids: 06/04/22 Time Last Intake of Solids: 19:00 Past Medical History Medical History ADD (attention deficit disorder) Depression Exercise / Class Metabolic Activity II 4-5 Yardwork/Stairs/Walk up hill Past Family History Family History (Updated 06/05/22 @ 13:35 by Radha Prasad PA-C) Other Hypertension Past Surgical History Surgical History Other dental procedure status Past Anesthesia History No Hx of Anesthesia Complications and No Family Hx of Anesthesia Complications History of PONV No Hx of PONV and No Hx of Motion Sickness Social History Smoking Status: Never smoker Hx Alcohol Use: Yes alcohol intake frequency: holidays/special occasions only Hx Substance Use: No Physical Exam Vital Signs Last Vital Signs Temp 37.4 C 06/06/22 13:16 Pulse 75 06/06/22 13:16 Resp 14 06/06/22 13:16 BP 131/73 06/06/22 13:16 Pulse Ox 94 06/06/22 13:16 O2 Del Method 06/06/22 13:16 ENMT Mouth: no dentition abnormality Thyromental Distance: > or= 3.5 Finger Breadths Mallampati Class: II Neck normal visual inspection Respiratory normal respiratory effort Auscultation: lungs clear to auscultation bilaterally Cardiovascular Rate/Rhythm: regular rate and regular rhythm Psychiatric Orientation: alert Testing Laboratory Results 06/06/22 08:13 06/06/22 08:13 Urine Color Yellow 06/05/22 07:23 Urine Appearance Clear (Clear) 06/05/22 07:23 Urine pH 5.5 (4.5-7.5) 06/05/22 07:23 Ur Specific [place] 1.009 (1.000-1.030) 06/05/22 07:23 Urine Protein Negative (Negative) 06/05/22 07:23 Urine Glucose (UA) Negative (Negative) 06/05/22 07:23 Urine Ketones Negative (Negative) 06/05/22 07:23 Urine Nitrite Negative (Negative) 06/05/22 07:23 Ur Leukocyte Esterase Negative (Negative) 06/05/22 07:23 06/05/22 09:59 Aerobic Blood Culture - Preliminary Blood No growth in Aerobic bottle after 24 hours. Anaerobic Blood Culture - Preliminary No growth in Anaerobic bottle after 24 hours. 06/05/22 10:03 Aerobic Blood Culture - Preliminary Blood No growth in Aerobic bottle after 24 hours. Anaerobic Blood Culture - Preliminary No growth in Anaerobic bottle after 24 hours.
[2022-06-06] MEDS ORDERED: DEXAMETHASONE SOD INJ 4 MG/ML VIAL ONE (15:30)
--- NOTE | 2022-06-06 15:30 | Post Operative Brief Note ---
Immediate Post Op Note v1 Date of Surgery June 06, 2022 Pre & Post Diagnosis Operation Date: 06/06/22 08:50 <No data on this case meets the specified criteria> Operation Date: 06/06/22 14:00 Pre-Op Diagnosis: Choledocholithiasis I identified the patient and participated in the time-out.: Yes Procedure Operation Date: 06/06/22 14:00 EGD, EUS and ERCP with biliary and pancreatic stent placement Surgeon Zan Rayo, DO Strike On Machine Operator None Estimated Blood Loss 0 Findings Consistent with Post-Op Diagnosis
--- NOTE | 2022-06-06 15:38 | Communication Note ---
Date of Service: June 06, 2022 The patient underwent upper endoscopy, endoscopic ultrasound and ERCP. He was found to have blood stones within the distal common bile duct ERCP was quite challenging and required a pancreatic septotomy to access the biliary tree. Several gallstones were removed, a pancreatic stent was placed and a biliary stent was placed. Recommendations Continue IV hydration overnight clear liquid diet, avoid nonsteroidals for 1 week, empiric coverage with antibiotics for total of 7 days, repeat ERCP for stent removal 6 to 8 weeks, cholecystectomy per general surgery
--- NOTE | 2022-06-06 15:40 | GI REPORT ---
Patient Name: Thomas Stacy Procedure Date: 06/06/2022 2:27 PM Date of : 1995 Admit Type: Inpatient Age: 27 Gender: Male Attending MD: Zan Rayo DO, Procedure: Upper GI endoscopy Providers: Zan Rayo DO Referring MD: Cory Elizondo Do Indications: Epigastric abdominal pain Medicines: General Anesthesia Complications: No immediate complications. Estimated blood loss: Minimal. Estimated Blood Loss: Estimated blood loss was minimal. Procedure: Pre-Anesthesia Assessment: - Prior to the procedure, a History and Physical was performed, and patient medications, allergies and sensitivities were reviewed. The patient's tolerance of previous anesthesia was reviewed. - The risks and benefits of the procedure and the sedation options and risks were discussed with the patient. All questions were answered and informed consent was obtained. - Patient identification and proposed procedure were verified prior to the procedure by the physician, the nurse and the campaign manager. The procedure was verified in the procedure room. - Pre-procedure physical examination revealed no contraindications to sedation. - ASA Grade Assessment: II - A patient with mild systemic disease. - After reviewing the risks and benefits, the patient was deemed in satisfactory condition to undergo the procedure. - The anesthesia plan was to use general anesthesia. - Immediately prior to administration of medications, the patient was re-assessed for adequacy to receive sedatives. - The heart rate, respiratory rate, oxygen saturations, blood pressure, adequacy of pulmonary ventilation, and response to care were monitored throughout the procedure. - The physical status of the patient was re-assessed after the procedure. After obtaining informed consent, the endoscope was passed under direct vision. Throughout the procedure, the patient's blood pressure, pulse, and oxygen saturations were monitored continuously. The Endoscope was introduced through the mouth, and advanced to the third part of duodenum. The upper GI endoscopy was accomplished without difficulty. The patient tolerated the procedure well. Findings: The examined esophagus was normal. The Z-line was regular and was found 38 cm from the incisors. Two localized erosions with no bleeding and no stigmata of recent bleeding were found on the posterior wall of the gastric body. The examined duodenum was normal. Impression: - Normal esophagus. - Z-line regular, 38 cm from the incisors. - Gastric erosions with no bleeding and no stigmata of recent bleeding. - Normal examined duodenum. - No specimens collected. Recommendation: - Perform an upper endoscopic ultrasound (UEUS) today. Zan Rayo D.O. Zan Rayo, 06/06/2022 3:39:46 PM This report has been signed electronically. Note Initiated On: 06/06/2022 2:27 PM Number of Addenda: 0 I attest to the content of the Intraoperative Record and orders documented therein, exceptions below {[id number]}
--- NOTE | 2022-06-06 15:41 | Fluoroscopy Report ---
FL ERCP biliary ductal CLINICAL HISTORY: EXPLORE DUCTS TECHNIQUE: 7 views were obtained with the C-arm in the OR with the above procedure. Total fluoroscopy time was 145 seconds. Comparison: None available at the time of this dictation. FINDINGS/IMPRESSION: Intraoperative images were obtained of ERCP. Please correlate with intraoperative fluoroscopy and operative report. ACT 112: Negative or not required by law. Electronically signed by: Fercho Dawn M.D. 06/06/2022 3:40 PM
--- NOTE | 2022-06-06 15:42 | GI REPORT ---
Patient Name: Thomas Stacy Procedure Date: 06/06/2022 2:32 PM Date of : 1995 Admit Type: Inpatient Age: 27 Gender: Male Attending MD: Zan Rayo DO, Procedure: Upper EUS Providers: Zan Rayo DO Referring MD: Junior Stevenson Indications: Elevated liver enzymes, Suspected choledocholithiasis Medicines: General Anesthesia Complications: No immediate complications. Estimated blood loss: Minimal. Estimated Blood Loss: Estimated blood loss was minimal. Procedure: Pre-Anesthesia Assessment: - Prior to the procedure, a History and Physical was performed, and patient medications, allergies and sensitivities were reviewed. The patient's tolerance of previous anesthesia was reviewed. - The risks and benefits of the procedure and the sedation options and risks were discussed with the patient. All questions were answered and informed consent was obtained. - Patient identification and proposed procedure were verified prior to the procedure by the physician, the nurse and the lacquerer. The procedure was verified in the procedure room. - Pre-procedure physical examination revealed no contraindications to sedation. - ASA Grade Assessment: II - A patient with mild systemic disease. - After reviewing the risks and benefits, the patient was deemed in satisfactory condition to undergo the procedure. - The anesthesia plan was to use general anesthesia. - Immediately prior to administration of medications, the patient was re-assessed for adequacy to receive sedatives. - The heart rate, respiratory rate, oxygen saturations, blood pressure, adequacy of pulmonary ventilation, and response to care were monitored throughout the procedure. - The physical status of the patient was re-assessed after the procedure. After obtaining informed consent, the endoscope was passed under direct vision. Throughout the procedure, the patient's blood pressure, pulse, and oxygen saturations were monitored continuously. The Scope was introduced through the mouth, and advanced to the third part of duodenum. The upper EUS was accomplished without difficulty. The patient tolerated the procedure well. Findings: ENDOSONOGRAPHIC FINDING: : There was no sign of significant endosonographic abnormality in the ampulla. No masses were identified. Multiple stones were visualized endosonographically in the common bile duct. The stones measured up to 7 mm in greatest dimension. They were hyperechoic and characterized by shadowing. There was dilation in the common bile duct which measured up to 7 mm. Multiple stones were visualized endosonographically in the gallbladder. They were hyperechoic and characterized by shadowing. There was no sign of significant endosonographic abnormality in the entire pancreas. The pancreatic duct measured up to 2 mm in diameter. No masses, no cysts, the pancreatic duct was well visualized from ampulla to tail, the pancreatic duct was thin in caliber. No lymphadenopathy seen. There was no sign of significant endosonographic abnormality in the left adrenal gland. No adrenal gland enlargement was identified. There was no sign of significant endosonographic abnormality in the visualized portion of the liver. Homogeneous parenchyma was identified. Impression: - There was no sign of significant pathology in the ampulla. - Multiple stones were visualized endosonographically in the common bile duct. - There was dilation in the common bile duct which measured up to 7 mm. - Multiple stones were visualized endosonographically in the gallbladder. - There was no sign of significant pathology in the entire pancreas. - Endosonographic images of the left adrenal gland were unremarkable. - There was no evidence of significant pathology in the visualized portion of the liver. - No specimens collected. Recommendation: - Perform an ERCP today. Zan Rayo D.O. Zan Rayo, 06/06/2022 3:41:58 PM This report has been signed electronically. Note Initiated On: 06/06/2022 2:32 PM Number of Addenda: 0 I attest to the content of the Intraoperative Record and orders documented therein, exceptions below {[id number]}
--- NOTE | 2022-06-06 15:50 | GI REPORT ---
Patient Name: Thomas Stacy Procedure Date: 06/06/2022 2:42 PM Date of : 1995 Admit Type: Inpatient Age: 27 Gender: Male Attending MD: Zan Rayo DO, Procedure: ERCP Providers: Zan Rayo DO Referring MD: Junior Stevenson Indications: Abdominal pain of suspected biliary origin, For therapy of bile duct stone(s), Elevated liver enzymes Medicines: General Anesthesia Complications: No immediate complications. Estimated blood loss: Minimal. Estimated Blood Loss: Estimated blood loss was minimal. Procedure: Pre-Anesthesia Assessment: - Prior to the procedure, a History and Physical was performed, and patient medications, allergies and sensitivities were reviewed. The patient's tolerance of previous anesthesia was reviewed. - The risks and benefits of the procedure and the sedation options and risks were discussed with the patient. All questions were answered and informed consent was obtained. - Patient identification and proposed procedure were verified prior to the procedure by the physician, the nurse and the seat nailer. The procedure was verified in the procedure room. - Pre-procedure physical examination revealed no contraindications to sedation. - ASA Grade Assessment: II - A patient with mild systemic disease. - After reviewing the risks and benefits, the patient was deemed in satisfactory condition to undergo the procedure. - The anesthesia plan was to use general anesthesia. - Immediately prior to administration of medications, the patient was re-assessed for adequacy to receive sedatives. - The heart rate, respiratory rate, oxygen saturations, blood pressure, adequacy of pulmonary ventilation, and response to care were monitored throughout the procedure. - The physical status of the patient was re-assessed after the procedure. After obtaining informed consent, the scope was passed under direct vision. Throughout the procedure, the patient's blood pressure, pulse, and oxygen saturations were monitored continuously. The Duodenoscope was introduced through the mouth, and advanced to the duodenum and used to inject contrast into the bile duct. The ERCP was accomplished without difficulty. The patient tolerated the procedure well. Findings: The social and political studies professor film was normal. The esophagus was successfully intubated under direct vision without detailed examination of the pharynx, larynx, and associated structures, and upper GI tract. The upper GI tract was grossly normal. The major papilla was normal. The ventral pancreatic duct was inadvertently cannulated with the short-nosed traction sphincterotome and 0.025 in Visiglide guidewire without any complications. The wire was left in place to aid in biliary cannulation and later place a prophylactic pancreatic stent. Despite this, the bile duct could not be cannulated with the short-nosed traction sphincterotome and guidewire. Several wire combinations were used we elected to perform a ventral pancreatic septotomy was made with a monofilament CleverCut distal wire sphincterotome using ERBE electrocautery. There was no post-sphincterotomy bleeding. The bile duct was then deeply cannulated with the short-nosed traction sphincterotome and 0.025 in angled visiglide guidewire. Contrast was injected. I personally interpreted the bile duct images. Contrast extended to the hepatic ducts. The common bile duct was moderately dilated, with a stone causing an obstruction. The largest diameter was 8 mm. The biliary sphincterotomy was extended with a monofilament CleverCut distal wire sphincterotome using ERBE electrocautery. There was no post-sphincterotomy bleeding. To discover objects, the biliary tree was swept with an 11.5 mm balloon and 15 mm balloon starting at the bifurcation. Sludge was swept from the duct. Many large white pigmented stones were removed. No stones remained. Cystic duct was patent revealing numerous gallstones within the gallbladder. One 10 Fr by 7 cm biliary stent with a single external flap and a single internal flap was placed 7 cm into the common bile duct. Bile flowed through the stent. The stent was in good position. One 5 Fr by 7 cm pancreatic stent with a full external pigtail and no internal flaps was placed 7 cm into the ventral pancreatic duct. Clear fluid flowed through the stent. The stent was in good position. The endoscope was withdrawn from the patient. Indomethacin 100 mg was given via suppository to decrease the risk of post-ERCP pancreatitis (PEP). Impression: - The major papilla appeared normal. - Choledocholithiasis was found. Complete removal was accomplished by biliary sphincterotomy and balloon extraction. - One biliary stent was placed into the common bile duct. - One prophylactic pancreatic stent was placed into the ventral pancreatic duct. - Indomethacin given to decrease risk of post-ERCP pancreatitis. Recommendation: - Avoid aspirin and nonsteroidal anti-inflammatory medicines for 1 week. - Clear liquid diet today. - Use broad spectrum antibiotics for 1 week. - Cholecystectomy per General Surgery - Repeat ERCP in 6 weeks to remove stent. Zan Rayo D.O. Zan Rayo, DO 06/06/2022 3:50:15 PM This report has been signed electronically. Note Initiated On: 06/06/2022 2:42 PM Number of Addenda: 0 I attest to the content of the Intraoperative Record and orders documented therein, exceptions below {[id number]}
--- NOTE | 2022-06-06 19:47 | Anesthesiology Progress Note ---
Date of Service June 06, 2022 Anesthesia Post Procedure Vital Signs Vital Signs: Temp Pulse Pulse Pulse Resp BP BP 06/06/22 19:05 36.4 C L 64 16 117/78 06/06/22 18:18 63 16 116/80 06/06/22 17:14 36.5 C 66 16 114/78 06/06/22 16:41 36.7 C 68 17 114/75 06/06/22 16:10 36.8 C 69 17 124/82 06/06/22 15:55 69 14 122/80 06/06/22 15:45 81 12 128/79 06/06/22 15:35 36.2 C L 90 15 129/85 06/06/22 13:16 37.4 C 75 14 131/73 06/06/22 07:54 36.5 C 63 17 110/73 06/05/22 23:05 36.6 C 66 15 111/65 Pulse Ox O2 Del Method 06/06/22 19:05 97 Room Air 06/06/22 18:18 95 Room Air 06/06/22 17:14 97 Room Air 06/06/22 16:41 97 Room Air 06/06/22 16:10 98 Room Air 06/06/22 15:55 96 Room Air 06/06/22 15:45 99 Room Air 06/06/22 15:35 100 Room Air 06/06/22 13:16 94 Room Air 06/06/22 07:54 99 Room Air 06/05/22 23:05 100 Room Air Pain Intensity Bilateral Upper Abdomen: Pain Intensity: 8 Abdomen: Pain Intensity: 1 Head: Pain Intensity: 5 Transfer of Care Handoff Completed per policy Notes Mental Status: alert / awake / arousable and participated in evaluation Patient Amnestic to Procedure: Yes Nausea / Vomiting: adequately controlled Pain: adequately controlled Airway Patency, RR, SpO2: stable & adequate BP & HR: stable & adequate Hydration State: stable & adequate Anesthetic Complications: no major complications apparent and Pt Satisfied with anesthetic care
[2022-06-07] MEDS: CIPROFLOXACIN / D5W 400 MG/200 ML BAG IV SCH ×2 (02:46→14:48)
[2022-06-07] MEDS: metroNIDAZOLE 500 MG/100 ML BAG IV SCH ×2 (02:46→10:04)
[2022-06-07] MEDS: ACETAMINOPHEN 500 MG TAB PO PRN ×2 (03:32→14:01)
[2022-06-07 06:42] LABS: Codeine Urine NEGATIVE ng/mL (<50); Hydrocodone Urine NEGATIVE ng/mL (<50); Hydromor Urine NEGATIVE ng/mL (<50); Marijuana Quant, GCMS Urine 39 ng/mL (<5); Morphine Urine 2130 ng/mL (<50); Norhydrocodone Conf Ur NEGATIVE ng/mL (<50); Noroxycodone Urine NEGATIVE ng/mL (<50); Oxycodone Urine NEGATIVE ng/mL (<50); Oxymorph Urine NEGATIVE ng/mL (<50)
[2022-06-07 07:15] LABS: Albumin Level 3.7 gm/dl (3.4-5.0); BUN Creatinine Ratio 13.2 (10-20); Bilirubin Direct 0.2 mg/dl (0-0.2); Bilirubin,Total 0.6 mg/dl (0.2-1.0); Calcium 8.8 mg/dl (8.5-10.1); Creatinine Clr Calc Pharmacy 150.5 ml/min; Est GFR (Non-African American) 126.8 ml/min; Potassium 3.9 mmol/L (3.5-5.1); Total Protein 6.3 gm/dl (6.0-8.3)
[2022-06-07] MEDS: SERTRALINE HCL 50 MG TABLET PO SCH (08:48)
[2022-06-07 09:18] LABS: Mean Corpuscular Hgb Conc 32.5 g/dL (32.0-36.0); Mean Corpuscular Volume 73.8 fL (80.0-100.0); Mean Platelet Volume 10.3 fL (9.4-12.4); Monocytes # (auto) 0.32 K/uL (0.24-0.82); Neutrophils # (auto) 3.07 K/uL (1.4-6.5); Platelet Count 161 K/uL (130-400); RDW Coefficient of Variation 13.3 % (11.5-14.5); RDW Standard Deviation 35.5 fL (36.4-46.3); Red Blood Count 5.42 M/uL (4.63-6.08); White Blood Count 3.99 K/ul (4.8-10.8)
--- NOTE | 2022-06-07 12:03 | Surgery Progress Note ---
Date of Service June 07, 2022 Assessment & Plan (1) Cholelithiasis: Plan: ERCP with CBD stones, cleared advance diet discharge per medical team appt with DR Walker for outpatient lap roxann OK to discharge from surgical standpoint Present on Admission?: Yes (2) Transaminitis: Admission and Anticipated Discharge Date Admission Date: June 05, 2022 Subjective feels OK no pain Review of Systems Constitutional: no fever and no chills Respiratory: no cough and no dyspnea Cardiovascular: no chest pain Gastrointestinal: no abdominal pain, no nausea and no vomiting Genitourinary: no dysuria Integumentary: no lesions and no yellowing of the skin Neurologic: no localized weakness and no generalized weakness Psychiatric: no behavioral changes Physical Exam Constitutional: WD/WN, vitals as above Eyes: PERRL, conjunctivae normal, anicteric sclerae ENMT: external ear and nose normal, oropharynx normal Neck: trachea midline Respiratory: normal respiratory effort, lungs clear to auscultation Cardiovascular: RRR, no murmur, no edema Gastrointestinal (Abdomen): Inspection/Auscultation: abdomen normal to inspection and normal bowel sounds; abdomen not distended Percussion/Palpation: abdomen soft; abdomen nontender, no guarding and abdomen not rigid Musculoskeletal: Head/Neck/Chest: normocephalic and head atraumatic Skin: no rashes, warm and dry Results & Data ([facility]) Vital Signs (Past 12 Hours) Vital Signs Temp Pulse Resp BP Pulse Ox O2 Del Method 06/07/22 07:45 37.3 C 76 18 112/72 97 Room Air 06/07/22 03:30 36.3 C L 64 16 103/71 99 Room Air
[2022-06-07] MEDS ORDERED: metroNIDAZOLE 500 MG TAB PO SCH ×2 (16:30→21:00)
--- NOTE | 2022-06-07 16:38 | Hospitalist Progress Note ---
Date of Service June 07, 2022 Assessment & Plan (1) Choledocholithiasis: Plan: with Possible Ascending Cholangitis per admitting service notes with addendum: This is a 27yo M with PMH of depression and ADD who presents with abdominal pain x 2 days. Pain started two nights ago after eating mozzarella sticks and he describes it as sudden onset in epigastrium with associated nausea and found to have cholelithiasis, transaminitis and concern for ascending cholangitis per imaging. Afebrile, VSS, no leukocytosis. Not septic Tbili 1.4, AST 511, ALT 600, alk phos 290, monospot negative, hepatitis panel pending CT abd/pelvis with mild enhancement within the nondistended gallbladder wall with trace pericholecystic fluid. There is also subtle enhancement within the common hepatic duct. This is nonspecific but could be related to a developing acute cholecystitis or ascending cholangitis GI consulted - MRCP with cholelithiasis with findings suspicious for acute cholecystitis. Gen surg consulted - abd ultrasound with cholelithiasis and intraductal calculi within liver raising concern for PSC . Lap roxann cancelled for today due to patient asymptomatic for acute cholecystitis. Will plan for clinic f/u for po ssible elective cholecystectomy s/p ERCP: (+) choledocholithiasis, s/p balloon extraction, sphincterotomy, common bile duct and pancreatic duct stent placement clinically improved afebrile, abdominal pain much better LFTs improving discharge on: Cipro + Flagyl x 5 days to complete 7 day course ff up with Gen Surg in 1-2 weeks for elective cholecystectomy ff up with GI in 6 weeks for CBD stent removal (2) Depression: Plan: Continue Zoloft once diet advanced (3) ADD (attention deficit disorder): Plan: No longer taking medications DVT Ppx: SCDs Code status: FULL PCP: Any Dispo: d/c home ff up with PCP in 1 week ff up with specialists as per above Admission and Anticipated Discharge Date Admission Date: June 05, 2022 Subjective ff up for choledocholithiasis, possible cholangitis, etc seen resting in bed, sitting up feels fine overall states he has some mild RUQ spasms intermittently no nausea (+) flatus no fever/chills no other symptoms re-evaluated in the afternoon had soft diet for lunch had few minutes abdominal discomfort but completely resolved after walking states he is ready for discharge today Review of Systems Review of Systems: all noted and negative except for above Physical Exam Physical Exam: General- oriented x 3, not in distress, speaks in sentences with no effort or accessory muscle use Eyes- anicteric Neck- no JVD Lungs- clear breath sounds bilaterally, no rales/wheezes Heart- normal rate, regular rhythm; no murmurs Abdomen- normal bowel sounds, nondistended, soft, nontender Extremities- no pretibial edema, no calf tenderness Neuro- alert, oriented x 3; no gross focal neurologic deficits Skin- warm & dry Results & Data Results & Data ([facility]) Vital Signs (Past 12 Hours) Vital Signs Temp Pulse Resp BP Pulse Ox O2 Del Method 06/07/22 16:21 36.6 C 100 H 18 114/68 100 Room Air 06/07/22 07:45 37.3 C 76 18 112/72 97 Room Air all noted and reviewed including below
--- NOTE | 2022-06-07 16:46 | Discharge Summary ---
Discharge Summary Date of Service June 07, 2022 Notes For Next Care Provider Please repeat LFTs 1 week after discharge. Medication Changes From Visit Ciprofloxacin 500mg BID x 5 days Flagyl 500mg TID x 5 days Admission HPI Per Admitting Provider This is a 27yo M with PMH of depression and ADD who presents with abdominal pain x 2 days. Pain started two nights ago after eating mozzarella sticks and he describes it as sudden onset in epigastrium with associated nausea. [place] too poorly to shower but was able to lay down and sleep with resolution of pain by morning. Recurred again last night after eating pizza and has progressively worsened overnight despite taking 500mg Tylenol and patient came into ED for further evaluation. Did have a fever of 102 F over the weekend for 12 hours but has not recurred. No chills, headache, lightheadedness, vomiting, dysuria, diarrhea or constipation. Pain has resolved with IV morphine in ED. No history of abdominal surgeries. Take CBD/THC gummies. Denies regular alcohol use. Only home meds include Zoloft and Vitamin D supplement. Admission Exam Per Admitting Provider General Appearance:WD/WN, vitals as above, NAD, sitting up in bed, pleasant, conversing easily Head: normocephalic, atraumatic Eyes:normal inspection, PERRL, conjunctivae normal, anicteric sclerae ENT: external ear and nose normal, oropharynx normal Neck: normal visual inspection, trachea midline, no thyromegaly Respiratory:normal respiratory effort, lungs clear to auscultation, no wheeze, rales, rhonchi. No accessory muscle use Cardiovascular: regular rate, rhythm, no murmur, normal peripheral pulses, no BLE edema. Vessels: no JVD Chest: normal inspection of chest Abdomen/GI: normal bowel sounds, soft, mild TTP epigastric region, no hepatosplenomegaly Extremities/Musculoskeletal: no cyanosis or clubbing, extremities motor strength 5/5 Neurologic: PERRL, EOMI, accommodation nl, no face palsy, no dysarthria, CN's II-XI intact bilaterally and moves all extremities Psychiatric:A+Ox3, euthymic affect Skin: no rashes, normal color, warm/dry Principal Dx & Hospital Course #1 = Principal Diagnosis (1) Choledocholithiasis: with Possible Ascending Cholangitis per admitting service notes with addendum: This is a 27yo M with PMH of depression and ADD who presents with abdominal pain x 2 days. Pain started two nights ago after eating mozzarella sticks and he describes it as sudden onset in epigastrium with associated nausea and found to have cholelithiasis, transaminitis and concern for ascending cholangitis per imaging. Afebrile, VSS, no leukocytosis. Not septic Tbili 1.4, AST 511, ALT 600, alk phos 290, monospot negative, hepatitis panel pending CT abd/pelvis with mild enhancement within the nondistended gallbladder wall with trace pericholecystic fluid. There is also subtle enhancement within the common hepatic duct. This is nonspecific but could be related to a developing acute cholecystitis or ascending cholangitis GI consulted - MRCP with cholelithiasis with findings suspicious for acute cholecystitis. Gen surg consulted - abd ultrasound with cholelithiasis and intraductal calculi within liver raising concern for PSC . Lap roxann cancelled for today due to patient asymptomatic for acute cholecystitis. Will plan for clinic f/u for possible elective cholecystectomy s/p ERCP: (+) choledocholithiasis, s/p balloon extraction, sphincterotomy, common bile duct and pancreatic duct stent placement clinically improved afebrile, abdominal pain much better LFTs improving discharge on: Cipro + Flagyl x 5 days to complete 7 day course ff up with Gen Surg in 1-2 weeks for elective cholecystectomy ff up with GI in 6 weeks for CBD stent removal (2) Depression: Continue Zoloft once diet advanced (3) ADD (attention deficit disorder): No longer taking medications DVT Ppx: SCDs Code status: FULL PCP: Any Dispo: d/c home ff up with PCP in 1 week ff up with specialists as per above Discharge Exam General- oriented x 3, not in distress, speaks in sentences with no effort or accessory muscle use Eyes- anicteric Neck- no JVD Lungs- clear breath sounds bilaterally, no rales/wheezes Heart- normal rate, regular rhythm; no murmurs Abdomen- normal bowel sounds, nondistended, soft, nontender Extremities- no pretibial edema, no calf tenderness Neuro- alert, oriented x 3; no gross focal neurologic deficits Skin- warm & dry Updated Medication List Medication Instructions Recorded Confirmed Type cholecalciferol (vitamin D3) 50 50 mcg PO DAILY 06/05/22 06/05/22 History mcg (2,000 unit) capsule (Vitamin D3) sertraline 100 mg tablet 150 mg PO DAILY 06/05/22 06/05/22 History cefdinir 300 mg capsule 300 mg PO BID 5 days #10 caps 06/07/22 Rx ciprofloxacin HCl 500 mg tablet 500 mg PO BID #10 tabs 06/07/22 Rx (Cipro) metronidazole 500 mg tablet 500 mg PO TID #15 tabs 06/07/22 Rx metronidazole 500 mg tablet 500 mg PO TID 5 days #15 tabs 06/07/22 Rx Hospital Stay Data Consultations 06/05/22 11:23 Consult Gastroenterology Routine Consult General Surgery Routine Procedures Performed Operation Date: 06/06/22 08:50 <No data on this case meets the specified criteria> Operation Date: 06/06/22 14:00 Actual Procedures p Endoscopic Retrograde Cholangiopancreato - Zan Rayo DO s Endoscopic Ultrasonography Upper - Zan Rayo DO s Esophagogastroduodenoscopy - Zan Rayo DO Diagnostic Imagining Performed Abdomen/Pelvis CT 06/05/22 05:[address] WITH IV AND ORAL CONTRAST CT DOSE: 376.33 mGy.cm HISTORY: Right-sided abdominal pain TECHNIQUE: Multiaxial CT images of the abdomen and pelvis were performed following the use of intravenous and oral contrast. A dose lowering technique was utilized adhering to the principles of ALARA. COMPARISON STUDY: None. FINDINGS: The lung bases are clear. No pneumoperitoneum. No pneumatosis. The spleen is top normal in size. The adrenal glands, pancreas, and right kidney are unremarkable. There is a 7 mm left renal hypodense lesion which favors a cyst. No hydronephrosis. The bladder is unremarkable. No retroperitoneal lymphadenopathy. Normal caliber abdominal aorta. No hepatic masses. There is mild enhancement within the nondistended gallbladder with trace pericholecystic fluid. There is also subtle enhancement within the common hepatic duct. Normal caliber common bile duct. No definite gallstones by CT. The main portal vein is patent. No pelvic free fluid. No bowel wall thickening or obstruction. Normal appendix. IMPRESSION: 1. Mild enhancement within the nondistended gallbladder wall with trace pericholecystic fluid. There is also subtle enhancement within the common hepatic duct. This is nonspecific but could be related to a developing acute cholecystitis or ascending cholangitis. Surgical/GI consultation recommended. 2. No bowel wall thickening or obstruction. 3. Normal appendix. ACT 112: Negative or not required by law. Electronically signed by: Steve Schsuter M.D. 06/05/2022 9:28 AM Abdomen Ultrasound 06/05/22 11:23 ABDOMINAL ULTRASOUND, RIGHT UPPER QUADRANT HISTORY: R/o gallstones, choledocholithiasis. COMPARISON: CT of the abdomen and pelvis June 05, 2022. FINDINGS: Mild intra and extra hepatic biliary ductal dilatation is noted. The common bile duct measures 9 mm in caliber. No common bile duct calculi are identified. However, there are 2 echogenic foci with shadowing within the intrahepatic bile ducts which measure up to 1 cm. These could reflect intraductal calculi. Gallstones within the gallbladder are noted. There is mild gallbladder wall thickening. The gallbladder is not distended. No sonographic Portillo sign was elicited. The pancreas is obscured by overlying bowel gas. There is no right hydronephrosis. IMPRESSION: 1. Cholelithiasis with mild gallbladder wall thickening. However, no sonographic Portillo sign. These findings do not strongly suggest acute cholecystitis although a hepatobiliary scan could be obtained as indicated. 2. Mild biliary ductal dilatation. No common bile duct calculi identified although distal common bile duct obscured. Two suspected intraductal calculi within the liver. These are nonspecific but raise the possibility of cholangitis, such as primary sclerosing cholangitis. GI consultation is recommended. ACT 112: Negative or not required by law. Electronically signed by: Liborio Cha M.D. 06/05/2022 12:56 PM Cholangiopancreatography MRI 06/05/22 13:26 MRCP CLINICAL HISTORY: Right upper quadrant abdominal pain. COMPARISON STUDY: Abdominal CT dated 06/05/2022. Abdominal ultrasound dated 06/05/2022. TECHNIQUE: Abdominal MRCP is performed utilizing various T2 weighted sequences in the axial and coronal planes. IV contrast was not administered for this examination. 3-D reformats are created and assessed. The examination is degraded by motion artifact. FINDINGS: Gallstones are noted. There is mild gallbladder wall thickening and edema. The gallbladder is not significantly distended. There is minimal intrahepatic biliary ductal dilatation. The common bile duct is dilated, measuring up to 9 mm diameter. Question a filling defect at the ampulla. Choledocholithiasis is not excluded. The pancreatic duct is normal in caliber. The unenhanced liver is normal as visualized. The spleen is mildly enlarged, measuring 13.3 cm in length. The unenhanced pancreas, adrenal glands, and kidneys are grossly normal. The abdominal aorta is normal in caliber. No bowel obstruction is seen. There is no abdominal ascites. Trace right pleural effusion is noted. The bony structures are grossly unremarkable. IMPRESSION: 1. Cholelithiasis with findings suspicious for acute cholecystitis. If warranted a nuclear hepatobiliary scan would be confirmatory. 2. There is mild intrahepatic biliary ductal dilatation. The common bile duct is dilated, and choledocholithiasis is questioned at the ampulla. Dictated: 06/05/2022 6:52 PM Transcribed: 06/05/2022 7:34 PM Lora [id number] [email or web address] Electronically signed by: Jered Wu M.D. 06/05/2022 7:42 PM Discharge Instructions Given to Patient (Per Discharging Provider) PLEASE REFER TO YOUR NEW MEDICATION LIST AND FOLLOW INSTRUCTIONS CAREFULLY. YOUR NEW MEDICATIONS INCLUDE: Ciprofloxacin, Flagyl-antibiotics for possible infection of the bile ducts You can take Tylenol 650 mg every 4-6 hours as needed for pain. Do not take more than 3000 mg of Tylenol per 24 hours. Drink plenty of fluids. PLEASE CALL YOUR PRIMARY CARE PHYSICIAN OR RETURN TO THE ER IF WITH WORSENING OF SYMPTOMS, INCLUDING Abdominal pain, nausea vomiting, fevers or chills, yellowing of the skin, etc. FOLLOW UP WITH PRIMARY CARE PHYSICIAN IN 1 WEEK. The clinic will be calling you soon for the appointment schedule. FOLLOW-UP WITH GENERAL SURGEON DR. HAYDER NUÑEZ 1 WEEK. Contact information noted above. FOLLOW-UP WITH TYPE CASTER DR. KATT RAYO IN 6 WEEKS FOR REMOVAL OF COMMON BILE DUCT AND PANCREATIC STENTS. Contact information noted above. Total Time Total Time Spent Total Time Spent (In Minutes): > 30 minutes
== END 2022-06-07 17:30 | disposition home or self-care (01) ==
LOC: ED 04:16 → 3E 11:22 → SUATTDRO 11:22 → INTOOBSV 11:22 → 3E 13:55